=== PATIENT | female | born 1965 | race Asian ===

== ENCOUNTER → 2021-03-16 | Emergency (ER) | payer BC ==
[~2021-03-16] VITALS: Ht 157.5 cm; Wt 54.4 kg
[~2021-03-16] MED LIST: HYDR-3972 PO; KETOROLAC TROMETHAMINE 15 MG/ML VIAL ONE; MORPHINE SULFATE INJ 4 MG/ML DISP.SYRIN ONE; ONDANSETRON HCL/PF 4 MG/2 ML VIAL ONE; TAMS-12 GT; TAMSULOSIN 0.4 MG CAP.SR.24H ONE
--- NOTE | 2021-03-16 10:00 | NUR ---
TO ER BED 2 FOR EVAL,C/O LEFT FLANK PAIN,NAUSEA AND VOMITING.
--- NOTE | 2021-03-16 10:06 | NUR ---
SEEN BY DR SELLERS,AWAITING FURTHER ORDERS
[2021-03-16] MEDS: KETOROLAC TROMETHAMINE INJ 30 MG/ML VIAL IV ONE ×2 (10:11→12:11)
[2021-03-16] MEDS: ONDANSETRON HCL/PF 4 MG/2 ML VIAL IVP ONE (10:12)
[2021-03-16] MEDS: IV NS 0.9% 1,000 ML BAG IV ONE (10:13)
[2021-03-16] MEDS: MORPHINE SULFATE INJ 2 MG/ML DISP.SYRIN IV ONE (10:13)
[2021-03-16 10:21] LABS: BASOPHILS # (AUTO) 0.1 /CMM (0.0-0.2); BASOPHILS % (AUTO) 1.2 % (0.0-2.0); EOSINOPHILS % (AUTO) 2.1 % (0.0-6.0); HEMATOCRIT 46 % (33-45); HEMOGLOBIN 15.2 g/dL (11.5-14.8); LYMPHOCYTES # (AUTO) 1.8 /CMM (0.8-4.8); LYMPHOCYTES % (AUTO) 38.7 % (20.0-44.0); MEAN CORPUSCULAR HGB CONC 33 g/dl (31.0-36.0); MEAN CORPUSCULAR VOLUME 85 fL (82-100); MONOCYTES # (AUTO) 0.3 /CMM (0.1-1.30); MONOCYTES % (AUTO) 5.3 % (2.0-12.0); NEUTROPHILS # (AUTO) 2.5 /CMM (1.8-8.9); NEUTROPHILS % (AUTO) 52.7 % (43.0-81.0); PLATELET COUNT (AUTO) 174 /CMM (150-450); RED BLOOD CELL COUNT(AUTO) 5.42 MIL/uL (4.0-5.2); WHITE BLOOD COUNT (AUTO) 4.8 K/uL (4.3-11.0)
--- NOTE | 2021-03-16 10:24 | NUR ---
BIB C/O LEFT FLANK PAIN X 1 HR ASSOCIATED WITH NAUSEA/VOMITING. DENIES SOB, BREATHING IS EVEN AND UNLABORED. IV LINE INSERTED, LABS DRAWN AND SENT TO LAB. BLANKET GIVEN. WILL CONTINUE TO MONITOR.
[2021-03-16 10:31] LABS: CALCIUM, SERUM 9.3 mg/dL (8.5-10.1); CREATININE 0.8 mg/dL (0.6-1.3); POTASSIUM 4.1 mmol/L (3.5-5.1)
[2021-03-16 10:36] LABS: ALBUMIN 3.9 g/dL (3.4-5.0); BILIRUBIN,DIRECT 0.1 mg/dL (0.0-0.2); BILIRUBIN,TOTAL 0.4 mg/dL (0.2-1.0); TOTAL PROTEIN, SERUM 7.6 g/dL (6.4-8.2)
--- NOTE | 2021-03-16 11:09 | NUR ---
Urine specimen sent to lab.
[2021-03-16 11:11] LABS: BILIRUBIN,URINE Negative (NEGATIVE); COLOR,URINE YELLOW (YELLOW); LEUKOCYTE ESTERASE ,URINE Trace (NEGATIVE); NITRITE, URINE Negative (NEGATIVE); PH,URINE 7.5 (5.0-8.0); PROTEIN,URINE Trace mg/dl (NEGATIVE); UGLUCOSE Negative (NEGATIVE); UROBILINOGEN,URINE 0.2 EU/dL (0.2)
[2021-03-16 11:29] LABS: RBC,URINE 81-100 /HPF (0-2)
[2021-03-16 11:30] LABS: BACTERIA,URINE Few /HPF (None Seen); URINE AMORPHOUS PHOSPHATES Many /HPF (None Seen)
[2021-03-16 11:31] LABS: SQUAMOUS EPITHELIAL CELL,UR Few /HPF (None Seen)
[2021-03-16] MEDS: TAMSULOSIN 0.4 MG CAP.SR.24H PO ONE (12:11)
[2021-03-16 12:12] VITALS: BP 128/85
--- NOTE | 2021-03-16 12:13 | NUR ---
Patient discharged to home in stable condition. Written and verbal after care instructions given. Patient verbalizes understanding of instruction. Vital signs stable, IV removed. Left with .
== END | disposition home or self-care (01) ==
LOC: ER 09:53
DX: N13.2 Hydronephrosis with renal and ureteral calculous obstruction (principal); I10 Essential (primary) hypertension; R11.10 Vomiting, unspecified; E86.0 Dehydration
CPT/HCPCS: 36415; 74176; 80048; 80076; 81001; 83690; 85025; 96361; 96374; 96375; 96376; 99284; J1885 ×2; J2270; J2405; J7030